=== PATIENT | male | born 1940 | race Caucasian/White ===

== ENCOUNTER 2017-06-07 13:15 | Emergency (ER) | payer OTHER ==
[~2017-06-07] VITALS: Ht 170.2 cm; Wt 88.5 kg
[~2017-06-07 13:15] MED LIST: ASPIRIN; FUROSEMIDE; LISINOPRIL; METOPROLOL; PLAVIX; PRILOSEC
[2017-06-07] MEDS ORDERED: HYDROCODONE/APAP 7.5MG-325MG 1 EA TAB PO PRN (13:30)
--- NOTE | 2017-06-07 14:48 | Diagnostic Imaging Report ---
History: Fall Comparison studies: None Technique: Axial images were obtained through the cervical region. Coronal and sagittal images reconstructed from the axial data. Intravenous contrast: None Findings: Atlantoaxial articulation: Intact Alignment: Normal lordosis No scoliosis. Cervicomedullary junction: No abnormalities. Patent foramen magnum. Soft tissues: No gross abnormalities. Vertebrae: No fractures, neoplasm or infection. Degenerative changes: Uncinate process hypertrophy and facet hypertrophy results in multilevel foraminal narrowing C3-4 left, C4-5 right, C5-6 right Atherosclerotic calcifications of the carotid bulbs. . IMPRESSION: 1. No acute abnormality Signed by: DR Dustin Rowley M.D. on 06/07/2017 3:57 PM
--- NOTE | 2017-06-07 14:56 | Diagnostic Imaging Report ---
Left knee - 3 views HISTORY: Pain. COMPARISON: None available. FINDINGS: Bones: No acute displaced fracture. No expansile lytic or sclerotic lesion. Joints: The joint spaces are well-maintained. No dislocation. Soft tissues: The soft tissues appear unremarkable. Surgical clips likely represent saphenous vein harvest. Vascular calcifications. IMPRESSION: No acute radiographic abnormality. Signed by: Dr. Bulmaro Godinez M.D. on 06/07/2017 2:52 PM
--- NOTE | 2017-06-07 15:00 | Diagnostic Imaging Report ---
EXAMINATION: Chest, RIBS UNILAT W/CXR INDICATION: Chest pain COMPARISON: None FINDINGS: LINES: None. Heart: Normal cardiac silhouette. Vascular: The pulmonary vasculature is within normal limits. Atherosclerotic calcifications of the aortic arch. Mediastinum: No mediastinal, hilar, or axillary mass or lymphadenopathy. Lungs: No parenchymal mass. No focal consolidation. Pleura: Small left pleural effusion. No pneumothorax. Bones: No acute osseous abnormality. Degenerative changes of the thoracic spine. Median sternotomy wires. Transverse fracture of the left lateral eighth rib. Soft tissues: Normal. Impression: Fracture of the left lateral eighth rib. Signed by: Dr. Bulmaro Godinez M.D. on 06/07/2017 2:57 PM
== END 2017-06-07 15:45 | disposition home or self-care (01) ==
LOC: ER 13:15
DX: S22.32XA Fracture of one rib, left side, initial encounter for closed fracture (principal); S80.212A Abrasion, left knee, initial encounter; W01.0XXA Fall on same level from slipping, tripping and stumbling without subsequent striking against object, initial encounter; Y92.008 Other place in unspecified non-institutional (private) residence as the place of occurrence of the external cause; I10 Essential (primary) hypertension; Z86.718 Personal history of other venous thrombosis and embolism; Z87.19 Personal history of other diseases of the digestive system
CPT/HCPCS: 71101; 72125; 93005; 99283